=== PATIENT | male | born 1985 | race Caucasian/White ===

== ENCOUNTER → 2018-09-15 | Outpatient (REF) | payer OTHER | LOC: M SFHCCLAY 09:54 | DX: Z87.820 Personal history of traumatic brain injury (principal); Z53.8 Procedure and treatment not carried out for other reasons ==

== ENCOUNTER → 2020-04-12 | Outpatient (REF) | payer OTHER ==
[2020-04-12 15:04] LABS: ALBUMIN 4.3 GM/DL (3.2-5.2); ALT/SGPT 22 U/L (12-78); BILIRUBIN,TOTAL 0.5 MG/DL (0.2-1.0); BLOOD UREA NITROGEN 16 MG/DL (7-18); CALCIUM LEVEL 9.4 MG/DL (8.5-10.1); CARBON DIOXIDE LEVEL 31 MEQ/L (21-32); CHLORIDE LEVEL 104 MEQ/L (98-107); CHOLESTEROL LEVEL 189 MG/DL (<200); CHOLESTEROL RISK RATIO 2.779 (<5); GLOMERULAR FILTRATION RATE > 60.0 (>60); GLUCOSE, FASTING 91 MG/DL (70-100); HDL CHOLESTEROL 68 MG/DL (>40); LDL CHOLESTEROL 108 MG/DL (<100); NON-HDL-C 121 MG/DL; POTASSIUM SERUM 4.4 MEQ/L (3.5-5.1); SODIUM LEVEL 137 MEQ/L (136-145); TOTAL PROTEIN 7.4 GM/DL (6.4-8.2); TRIGLYCERIDES LEVEL 64 MG/DL (<150)
[2020-04-12 15:14] LABS: HEMOGLOBIN 15.1 g/dl (13.5-17.5); MEAN CORPUSCULAR HGB CONC 32.8 g/dl (32.0-36.5); MEAN CORPUSCULAR VOLUME 97.5 fl (80.0-96.0); PLATELET COUNT, AUTOMATED 269 10^3/uL (150-450); RED BLOOD COUNT 4.72 10^6/uL (4.30-6.10); WHITE BLOOD COUNT 6.1 10^3/uL (4.0-10.0)
== END ==
LOC: M SFHCCLAY 08:49
PROVIDERS: ATTEND Family Medicine
DX: Z00.00 Encounter for general adult medical examination without abnormal findings (principal)

== ENCOUNTER → 2020-04-17 | Outpatient (CLI) | payer OTHER ==
--- NOTE | 2020-04-17 12:03 | REP ---
Clinical: Mass. Technique: Directed arboleda scale ultrasound examination using linear high frequency transducer. Findings: Ultrasound examination overlying the left posterior upper back demonstrates normal subcutaneous tissue and musculature without obvious mass lesion. No fluid collection or obvious abnormality. Impression: Unremarkable examination without evidence for fluid collection or mass lesion. Electronically Signed by Malik Stanton MD 04/17/2020 11:55 A
== END ==
LOC: M LRY 09:00
PROVIDERS: ATTEND Family Medicine
DX: R22.2 Localized swelling, mass and lump, trunk (principal)

== ENCOUNTER → 2020-10-14 | Outpatient (CLI) | payer OTHER | LOC: M LABSMTC 10:19 | PROVIDERS: ATTEND Orthopaedic Surgery | DX: Z01.812 Encounter for preprocedural laboratory examination (principal); Z20.828 Contact with and (suspected) exposure to other viral communicable diseases ==

== ENCOUNTER → 2020-10-18 | Outpatient (REF) | payer OTHER | LOC: M LAB REF 17:05 | PROVIDERS: ATTEND Orthopaedic Surgery | DX: D48.5 Neoplasm of uncertain behavior of skin (principal) ==

== ENCOUNTER → 2020-11-16 | Outpatient (CLI) | payer OTHER ==
--- NOTE | 2020-11-16 18:21 | REP ---
INDICATION: CERVICALGIA/LOW BACK PAIN COMPARISON: None. TECHNIQUE: AP, lateral, bilateral oblique, and coned-down views of the lumbar spine. FINDINGS: Alignment and lordosis maintained. Vertebral bodies are intact. Disc spaces are relatively normal/age-appropriate. No acute fracture/compression injury or subluxation. No obvious spondylolysis or spondylolisthesis. IMPRESSION: Essentially age-appropriate Lumbosacral Spine series. <Electronically signed by Malik Stanton > 11/16/20 [id number]
--- NOTE | 2020-11-16 18:24 | REP ---
INDICATION: CERVICALGIA/LOW BACK PAIN COMPARISON: None. TECHNIQUE: AP, lateral, flexion/extension, bilateral oblique, and open-mouth views. FINDINGS: Alignment and lordosis is maintained. There is no evidence for acute fracture / compression injury or subluxation. Generalized age-related changes include minimal endplate sclerosis. Subtle disc space narrowing at C5-6 cannot be excluded. No further obvious degenerative changes noted. Open mouth view demonstrates normal C1-C2 articulation and odontoid process. IMPRESSION: Relatively age-appropriate examination. However, very minimal disc space narrowing at C5-6 cannot be excluded. <Electronically signed by Malik Stanton > 11/16/20 [id number]
== END ==
LOC: M CLY 14:00
PROVIDERS: ATTEND Family Medicine
DX: M54.2 Cervicalgia (principal)

== ENCOUNTER → 2022-01-30 | Outpatient (REF) | payer OTHER | LOC: M SMT 16:59 | PROVIDERS: ATTEND Urology | DX: Z30.2 Encounter for sterilization (principal) ==

== ENCOUNTER → 2022-05-13 | Outpatient (CLI) | payer OTHER | LOC: M CLY 11:43 | PROVIDERS: ATTEND Nurse Practitioner Family | DX: M79.644 Pain in right finger(s) (principal) ==

== ENCOUNTER → 2022-07-15 | Outpatient (REF) | payer OTHER | LOC: M SFHCCAPE 14:16 | PROVIDERS: ATTEND Physician Assistant | DX: B02.9 Zoster without complications (principal) ==

== ENCOUNTER → 2022-09-23 | Outpatient (REF) | payer OTHER ==
[2022-09-23 12:57] LABS: SEMEN APPEARANCE OPAQUE (OPAQUE); SEMEN VISCOSITY LIQUID (LIQUID); SEMEN VOLUME 3.2 ml (2.0-5.0); SEMEN pH 8.5 (7.0-8.0)
[2022-09-23 13:00] LABS: WBC CONCENTRATION <=1 M/ml (<=1 M/ml)
== END ==
LOC: M SMT 11:44
PROVIDERS: ATTEND Urology
DX: Z30.8 Encounter for other contraceptive management (principal)

== ENCOUNTER → 2024-01-16 | Outpatient (REF) | payer OTHER ==
[~2024-01-16] MED LIST: KETO10TAB PO
[2024-01-16 17:49] LABS: BLOOD UREA NITROGEN 15 MG/DL (9-23); CARBON DIOXIDE LEVEL 34 MMOL/L (20-31); CHLORIDE LEVEL 106 MMOL/L (98-107); CREATININE FOR GFR 0.86 MG/DL (0.70-1.30); GLOMERULAR FILTRATION RATE > 60.0 (>60); GLUCOSE, FASTING 86 MG/DL (60-100); POTASSIUM SERUM 4.7 MMOL/L (3.5-5.1); SODIUM LEVEL 140 MMOL/L (136-145)
== END ==
LOC: M SFHCCLAY 12:05
PROVIDERS: ATTEND Family Medicine
DX: F32.A Depression, unspecified (principal)

== ENCOUNTER 2024-01-20 18:09 | Emergency (ER) | payer OTHER ==
[~2024-01-20] VITALS: Ht 170.2 cm; Wt 74.6 kg
[2024-01-21] MEDS: ACETAMINOPHEN TAB 650MG DOSE (2X325MG) PO ONE (00:12)
[2024-01-21 02:27] LABS: GC DNA AMPLIFICATION NEGATIVE (NEGATIVE)
[2024-01-21] MEDS ORDERED: KETO10TAB PO (02:46)
[2024-01-21] MEDS: KETOROLAC TROMETHAMINE 10 MG TAB PO ONE (03:18)
[2024-01-21 03:27] VITALS: BP 122/63; TEMP 98.2; O2SAT 98
== END 2024-01-21 03:30 | disposition home or self-care (01) ==
LOC: M ED 18:09
DX: N50.811 Right testicular pain (principal); Z79.1 Long term (current) use of non-steroidal anti-inflammatories (NSAID)

== ENCOUNTER 2025-06-23 10:49 | Emergency (ER) | payer OTHER, SELFPAY ==
[~2025-06-23] VITALS: Ht 170.2 cm; Wt 71.3 kg
[2025-06-23 10:52] VITALS: TEMP 97.4
[2025-06-23] MEDS ORDERED: LEXA1TAB2 (10:57)
[2025-06-23] MEDS: PROPARACAINE 0.5% OPHTH SOL 15ML OS ONE (12:02)
[2025-06-23] MEDS: FLUORESCEIN OPHTH 1 MG STRIP OS ONE (12:02)
[2025-06-23] MEDS: IBUPROFEN 800 MG TAB PO ONE (15:02)
[2025-06-23 15:05] VITALS: BP 142/91; O2SAT 100
[2025-06-23] MEDS ORDERED: CIPR0.3S37 OS (15:27)
== END 2025-06-23 15:35 | disposition home or self-care (01) ==
LOC: M ED 10:49
DX: S05.02XA Injury of conjunctiva and corneal abrasion without foreign body, left eye, initial encounter (principal); Y92.9 Unspecified place or not applicable; Y93.9 Activity, unspecified; Y99.9 Unspecified external cause status; W60.XXXA Contact with nonvenomous plant thorns and spines and sharp leaves, initial encounter; Z79.2 Long term (current) use of antibiotics; Z79.899 Other long term (current) drug therapy

== ENCOUNTER 2025-07-19 09:37 | Emergency (ER) | payer OTHER ==
[~2025-07-19] VITALS: Ht 170.2 cm; Wt 72.8 kg
[~2025-07-19 09:37] MED LIST changes: +CIPR0.3S37 OS; +LEXA1TAB2
[2025-07-19 09:39] VITALS: TEMP 98.4; O2SAT 99
[2025-07-19 10:36] LABS: APPEARANCE, URINE CLEAR (CLEAR); BACTERIA, URINE AUTO NEGATIVE (NEGATIVE); BILIRUBIN, URINE AUTO NEGATIVE (NEGATIVE); BLOOD, URINE BLOOD NEGATIVE (NEGATIVE); GLUCOSE, URINE (UA) AUTO NEGATIVE (NEGATIVE); KETONE, URINE AUTO NEGATIVE (NEGATIVE); LEUKOCYTE ESTERASE, URINE AUTO NEGATIVE (NEGATIVE); NITRITE, URINE AUTO NEGATIVE (NEGATIVE); PROTEIN, URINE AUTO NEGATIVE (NEGATIVE); RBC, URINE AUTO 0 /HPF (0-3); SPECIFIC GRAVITY URINE AUTO 1.010 (1.002-1.035); SQUAMOUS EPITHELIAL CELL UR AU 0 /HPF (0-6); UROBILINOGEN, URINE AUTO 0.2 mg/dL (0.0-2.0); WBC, URINE AUTO 0 /HPF (0-3)
[2025-07-19] MEDS ORDERED: IBUP80TA PO (11:46)
[2025-07-19 12:02] VITALS: BP 122/73
== END 2025-07-19 12:13 | disposition home or self-care (01) ==
LOC: M ED 09:37
DX: I86.1 Scrotal varices (principal); S30.22XA Contusion of scrotum and testes, initial encounter; Y92.9 Unspecified place or not applicable; Y93.75 Activity, martial arts; Y99.9 Unspecified external cause status; W50.1XXA Accidental kick by another person, initial encounter; Z79.1 Long term (current) use of non-steroidal anti-inflammatories (NSAID); Z79.899 Other long term (current) drug therapy

== ENCOUNTER → 2025-08-25 | Outpatient (REF) | payer OTHER ==
[~2025-08-25] MED LIST changes: +IBUP80TA PO
== END ==
LOC: M SFHCCLAY 11:48
PROVIDERS: ATTEND Physician Assistant
DX: Z53.9 Procedure and treatment not carried out, unspecified reason (principal)